=== PATIENT | female | born 1995 | race Two or more races ===

== ENCOUNTER 2024-11-27 04:11 | Emergency (ER) | payer MEDICAID, SELFPAY ==
[2024-11-27 04:12] VITALS: PULSE 86; RESP 18; O2SAT 99
--- NOTE | 2024-11-27 04:12 | PD.EDSYNC ---
ED Syncope RME/HPI General Chief Complaint: Syncope / Near Syncope Stated Complaint: DIZZINESS, Time Seen by Provider: 11/27/24 04:23 Arrival date/time: 11/27/24 04:11 RME / HPI RME / HPI narrative: This section includes all my notes and documentations, including HPI, PE, and ED course. Jaime Woody MD HPI: 28yo female with a history of gestational diabetes [facility] [place] [facility] presents to the ED for a chief complaint of dizziness. Patient states she woke up from her sleep feeling dizzy, as if the room was spinning. Patient states she laid down on the floor due to her symptoms worsening. She was concerned when she developed nausea, so she called 911 to come in for evaluation. Patient states she is currently and is due on 04/23/25, but has not yet had an OB ultrasound no care. She is not on any medications. She denies any abdominal pain, vaginal bleeding, decreased appetite or any other associated symptoms. No other complaints reported. ROS: All negative except as documented in HPI. Physical Exam: General: Alert and oriented. No acute distress when remaining still. Eyes: Conjunctivae and lids clear. PERRL. EOMI. ENT: No nasal congestion. Neck: Supple. Heart: RRR. Lungs: No respiratory distress. Good air movement. No rhonchi, wheezing, rales. Abdomen: Soft and nontender. Legs: No clubbing, cyanosis, edema. Skin: Warm and dry. Neuro: Alert and oriented X 3. Cranial nerves II to XII grossly normal. No peripheral motor deficits. I ordered IV fluid and Zofran and meclizine and diagnostic tests including OB ultrasound. At 6 AM on 11/27/2024, the care of the patient was transferred to Dr Mcfarland. Jaime Woody MD Related Data Previous Rx's ?Medication ?Instructions ?Recorded ibuprofen 800 mg tablet 800 mg PO TID PRN pain #30 tabs 11/01/23 Allergies Allergy/AdvReac Type Severity Reaction Status Date / Time No Known Allergies Allergy Verified 01/06/22 05:53 Review of Systems Review of Systems Systems Reviewed: All systems reviewed, normal except as documented Past Medical History Past Medical History CARDIAC: Negative Congestive Heart Failure RESPIRATORY: Negative Chronic Obstructive Pulmonary Disease (COPD) GENITOURINARY: Negative Renal Disease ENDOCRINE: Positive Endocrine Disorders and Diabetes Mellitus Type 2; Negative Diabetes Mellitus Type 1 Social History SMOKING STATUS: Former smoker ED Exam Narrative Physical exam: As noted in HPI. Course Quality Measures none Orders Category Date Time Status Bedside COVID-19 Antigen Test NOW Care 11/27/24 04:23 Active Bedside Influenza A&B Antigen Test NOW Care 11/27/24 04:23 Completed heart tone auscultation X1 Care 11/27/24 04:23 Active Saline [Insert IV] NOW Care 11/27/24 04:23 Active Straight [In and Out Catheter] X1 Care 11/27/24 04:23 Active US OB <= 14 weeks fetus Stat Exams 11/27/24 04:24 Ordered Meclizine HCl [Antivert] Med 11/27/24 04:25 Discontinued 25 mg PO X1 ONE Ondansetron Inj [Zofran Inj] Med 11/27/24 04:24 Discontinued 4 mg IV X1 ONE Sodium Chloride 0.9% 1000 ml [Ns] 1,000 ml Med 11/27/24 04:24 Discontinued IV 999 mls/hr Vital Signs Vital signs: Vital Signs Temperature 98.3 F 11/27/24 04:15 Pulse Rate 83 11/27/24 04:15 Respiratory Rate 18 11/27/24 04:15 Blood Pressure 129/77 11/27/24 04:15 Pulse Oximetry (%) 100 11/27/24 04:15 Oxygen Delivery Method Room Air 11/27/24 04:15 Syncope MDM Narrative MDM Narrative:: Scribe Attestation: 11/27/24 - Carito Parkinson am scribing for and in the presence of Dr. Woody. Patient data External records reviewed:: [facility] previous records (Per chart review, patient has no relevant previous ED visits.) Clinical information provided by:: patient Social determinants that could affect healthcare access:: housing Patient has the following chronic illnesses:: gestational diabetes How is presenting disease/condition affected by chronic disease/condition?: exacerbated by Evaluation data The following diagnostics were reviewed and interpreted by me:: lab results and EKG tracing(s) Lab and/or radiology exams considered but not ordered:: none Interpretation Summary: Diagnostics pending Medications / Prescriptions Medications or Prescriptions considered but not ordered:: none Medication administrations:: Medication Administration History Discontinued Medications Sodium Chloride (Ns) 1,000 mls @ 999 mls/hr IV .Q1H1M ONE Stop: 11/27/24 05:24 Last Admin: 11/27/24 05:00 Dose: 999 mls/hr Documented By: CRISTINA Meclizine HCl (Meclizine Hcl 25 Mg Tablet) 25 mg PO X1 ONE Stop: 11/27/24 04:26 Last Admin: 11/27/24 04:48 Dose: 25 mg Documented By: CRISTINA Ondansetron HCl (Ondansetron Inj 2 Mg/Ml Inj 2 Ml) 4 mg IV X1 ONE; Protocol Stop: 11/27/24 04:25 Last Admin: 11/27/24 04:48 Dose: 4 mg Documented By: CRISTINA IV fluid and Zofran and meclizine ordered Consultations Consultation(s) initiated? (list below): No Diagnosis Syncope Differential Diagnosis: syncope due to orthostatic hypotension, vasovagal syncope, dehydration and other (Vertigo, electrolyte abnormalities) Most likely diagnosis given after review of the tests above:: Diagnostics pending. Admission Indicated Admission indicated?: not indicated Explain why admission is indicated or not indicated:: Diagnostics pending. Admission Request Was there a request for admission?: No Disposition Plan Disposition Plan: other (specify) (Care transferred to next shift physician.) Discharge Plan Prescriptions/Referrals Prescriptions/Med Rec: No Action ibuprofen 800 mg tablet 800 mg PO TID PRN (Reason: pain) Qty: 30 0RF Referrals: Brown Freitas MD [Primary Care Provider] - In 1 week Problem List Clinical Impression: Dizziness, Patient/Caregiver Discharge Instructions Print Language: Yi
[2024-11-27 04:15] VITALS: BP 129/77; PULSE 83; RESP 18; TEMP 36.8; O2SAT 100
[2024-11-27] MEDS: ONDANSETRON INJ 2 MG/ML INJ 2 ML 4 MG IV (04:48)
[2024-11-27] MEDS: MECLIZINE HCL 25 MG TABLET PO (04:48)
[2024-11-27] MEDS: SODIUM CHLORIDE 0.9% 1000 ML 1,000 ML 999 ML IV (05:00)
[2024-11-27 05:52] VITALS: BP 113/80; PULSE 73; RESP 18; O2SAT 99
--- NOTE | 2024-11-27 05:53 | PD.EDADDENDU ---
Emergency Room Addendum Addendum Narrative: 0600: Care assumed from Dr. Woody, the previous shift emergency physician. Past medical, surgical, social and family history reviewed. Vitals and home medications reviewed. I will assume the care of the patient at this time, pending ultrasound and final disposition. Please refer to the emergency department record for history and examination from initial visit.? Physical exam by me shows patient under no acute distress at this time. 0752: Patient remains clinically stable throughout the emergency department visit. Re-assessment at the time of disposition demonstrates that the patient is in no acute distress. We reviewed all the results, analysis, and treatment plans. Patient is amenable to discharge. Strict return precautions were outlined. Patient was discharged in stable condition. Diagnoses: -Dizziness - RADIOLOGY Procedure(s): US OB >= 14 weeks Fetus Accession Number(s): [id number] cc: Brown Freitas MD; Jaime Woody MD; Amarjit Patricio MD~ Examination: Complete OB ultrasound greater than 14 weeks Date and time of exam: November 27, 2024 at 0559 hours INDICATIONS: Outside pelvic cramping today Findings: Viable intrauterine single fetus with single amniotic sac presentation transverse Cardiac motion 166 BPM Placenta anterior grade 1 and Umbilical cord insertion seen Amniotic fluid index 11.4 cm spine maternal right Cervix 6.1 cm closed Ovaries obscured by the uterus. Composite estimated gestational age based on BPD, head circumference, abdominal circumference, femur length is 19 weeks 3 days Estimated weight 309 g. Survey of intracranial anatomy, spinal anatomy, abdominal anatomy, four-chamber heart performed with no abnormalities identified. Impression: Viable intrauterine gestation transverse presentation Estimated gestational age 19 weeks 3 days. Dictated By: Amarjit Patricio MD
--- NOTE | 2024-11-27 06:25 | XR_ITS ---
Examination: Complete OB ultrasound greater than 14 weeks Date and time of exam: November 27, 2024 at 0559 hours INDICATIONS: Outside pelvic cramping today Findings: Viable intrauterine single fetus with single amniotic sac presentation transverse Cardiac motion 166 BPM Placenta anterior grade 1 and Umbilical cord insertion seen Amniotic fluid index 11.4 cm spine maternal right Cervix 6.1 cm closed Ovaries obscured by the uterus. Composite estimated gestational age based on BPD, head circumference, abdominal circumference, femur length is 19 weeks 3 days Estimated weight 309 g. Survey of intracranial anatomy, spinal anatomy, abdominal anatomy, four-chamber heart performed with no abnormalities identified. Impression: Viable intrauterine gestation transverse presentation Estimated gestational age 19 weeks 3 days.
[2024-11-27 06:27] VITALS: BP 144/99; PULSE 72; RESP 18; TEMP 36.7; O2SAT 98
[2024-11-27 07:50] VITALS: BP 113/80; PULSE 80; PULSE 96; RESP 16; TEMP 36.9; O2SAT 100
== END 2024-11-27 07:58 | disposition home or self-care (01) ==
PROVIDERS: Emergency Provider Emergency Medicine; PCP Family Medicine
DX: O24.912 Unspecified diabetes mellitus in pregnancy, second trimester (principal); R42 Dizziness and giddiness; O09.32 Supervision of pregnancy with insufficient antenatal care, second trimester; Z3A.19 19 weeks gestation of pregnancy
CPT/HCPCS: 76805; 87400; 87811; 96361; 96374; 99284; J2405; J7030; A9270

== ENCOUNTER 2024-11-28 20:48 | Emergency (ER) | payer MEDICAID, SELFPAY ==
--- NOTE | 2024-11-28 21:05 | PD.EDADULT ---
ED General RME/HPI General Stated complaint: MEDICAL CLEARANCE Time Seen by Provider: 11/28/24 20:55 Arrival date/time: 11/28/24 20:48 CC: Medical clearance HPI patient admits that she is , patient does not know how far along does not know her last menstrual cycle thinks that she is due in April 2025. Patient is a G3, P2 denies any vaginal bleeding vaginal discharge lower abdominal cramping lower abdominal pain painful urination bloody urination nausea vomiting or diarrhea. Patient denies any physical pain. Related Data Previous Rx's ?Medication ?Instructions ?Recorded ibuprofen 800 mg tablet 800 mg PO TID PRN pain #30 tabs 11/01/23 Allergies Allergy/AdvReac Type Severity Reaction Status Date / Time No Known Allergies Allergy Verified 01/06/22 05:53 Review of Systems Review of Systems Narrative Review of Systems: GEN: No fever, no chills, no weight loss EYES: No discharge, no visual changes, no pain HEENT: No ear pain, no congestion, no sore throat PULM: No shortness of breath, no cough, no congestion CV: No chest pain, no dyspnea on exertion, no palpitations GI: No nausea, no vomiting, no diarrhea, no pain, no constipation : No frequency, no urgency, no dysuria MUSC/SKEL: No joint pain, no back pain SKIN: No rash PSYCH: No hallucinations, no depression HEME/LYMPH: No easy bleeding or bruising tendencies NEURO: No weakness, no headache Past Medical History Past Medical History CARDIAC: Negative Congestive Heart Failure RESPIRATORY: Negative Chronic Obstructive Pulmonary Disease (COPD) GENITOURINARY: Negative Renal Disease ENDOCRINE: Positive Endocrine Disorders and Diabetes Mellitus Type 2; Negative Diabetes Mellitus Type 1 Social History SMOKING STATUS: Former smoker ED Exam Narrative Physical exam: [General: Obese not in any acute distress Head normocephalic HEENT: Within acceptable limits Neck is supple nontender Chest equal chest rise nontender to palpation Respiratory: Clear to auscultation no wheezes crackles or rubs CV: Rate rhythm is regular no murmurs rubs or clicks Abdomen is distended secondary to body habitus soft nontender no masses positive bowel sounds all 4 quadrants heart tones 149 located between the umbilicus and the underside of the pannus just above the pubis mons. Mid abdomen Back: No CVA tenderness no spinous process tenderness from cervical spine thoracic and lumbar spine Skin: Intact no petechiae rash induration ulceration or crepitus Extremities: Moving all extremity against resistance cap refill less than 2 seconds neurosensory intact Neuro: Awake alert oriented x3 Glascow coma 15 no focal deficits] Course Quality Measures none MDM Patient data External records reviewed:: [facility] previous records Clinical information provided by:: law enforcement Social determinants that could affect healthcare access:: none Patient has the following chronic illnesses:: None How is presenting disease/condition affected by chronic disease/condition?: uneffected by Evaluation data The following diagnostics were reviewed and interpreted by me:: other (specify) (None) Lab and/or radiology exams considered but not ordered:: None Interpretation Summary: heart tones at 149 patient is cleared for incarceration Medications Medications considered but not ordered:: None Medication administrations:: None Consultations Consultation(s) initiated? (list below): No Diagnosis Differential Diagnosis ED Complaint MDM: demise SAB Most likely diagnosis given after review of the tests above:: Cleared for incarceration Admission Indicated Admission indicated?: not indicated Explain why admission is indicated or not indicated:: Cleared for group home Admission Request Was there a request for admission?: No Disposition Plan Disposition Plan: Discharge Discharge Attestation Discharge Attestation: The patient and all family members were given an opportunity to ask questions and understood the discharge instructions. Discharge instructions specifically effects, indications for sooner follow up or return to the emergency department, and the expected course of current diagnosis. Patient condition: Stable Medical Decision Making Differential Diagnosis Differential Diagnosis: demise SAB Discharge Plan Plan Patient Disposition: HOME (Self Care) Patient condition on transfer: Stable Prescriptions/Referrals Prescriptions/Med Rec: No Action ibuprofen 800 mg tablet 800 mg PO TID PRN (Reason: pain) Qty: 30 0RF Problem List Clinical Impression: , Medical clearance for incarceration Patient/Caregiver Discharge Instructions Print Language: French Stand Alone Forms: Emilia Irwin Info., Patient Portal Info Letter PA/ZABRINA Supervising Physician LOIS Supervising Physician: Mynor Monreal ENP
[2024-11-28 21:13] VITALS: BMI 32.5
[2024-11-28 21:14] VITALS: BP 144/90; PULSE 135; RESP 19; TEMP 36.8; O2SAT 97
== END 2024-11-28 21:20 | disposition home or self-care (01) ==
LOC: SERX 21:22
PROVIDERS: Emergency Provider Emergency Medicine
DX: Z02.89 Encounter for other administrative examinations (principal); Z34.90 Encounter for supervision of normal pregnancy, unspecified, unspecified trimester
CPT/HCPCS: 99281

== ENCOUNTER 2025-03-24 22:02 | Emergency (ER) | payer MEDICAID, SELFPAY ==
[2025-03-24 22:06] VITALS: BP 132/80; PULSE 66; RESP 20; TEMP 36.7; O2SAT 100
[2025-03-24 22:07] VITALS: PULSE 75; RESP 18; O2SAT 98
[2025-03-24 22:10] VITALS: BMI 32.9
--- NOTE | 2025-03-24 22:13 | EDNOTE_ITS ---
ED SOB =RME/HPI General Chief Complaint: Shortness of Breath/Dyspnea Stated Complaint: SOB Time Seen by Provider: 03/24/25 22:20 Arrival date/time: 03/24/25 22:02 RME / HPI RME / HPI Narrative: This section includes all my notes and documentations, including HPI, PE, and ED course. Jaime Woody MD HPI: 29yo female who is ~36 weeks gestation BIBA from home with shortness of breath and heartburn for the last couple of days. Patient's symptoms worsened today. No contractions, vaginal bleeding, nausea, vomiting, or diarrhea. Baby has been moving well. No other complaints reported. ROS: All negative except as documented in HPI. Physical Exam: General: Alert and oriented. No acute distress when remaining still. Eyes: Conjunctivae and lids clear. ENT: No nasal congestion. Neck: Supple. Heart: RRR. Lungs: No respiratory distress. Good air movement. No rhonchi, wheezing, rales. Abdomen: Soft, gravid consistent with dates, and mild epigastric tenderness. Normal bowel sounds. No distension. No rebound or guarding. Back: No CVA tenderness. Skin: Warm and dry. Neuro: Alert and oriented X 3. I reviewed EMS notes. I reviewed all diagnostic test results. My interpretation of the EKG is sinus rhythm with no ST-T changes. My review of the abdominal US report is cholelithiasis. Blood tests unremarkable except Mg 1.4. UA unremarkable. COVID/Influenza negative. Negative NST by OB. At this point, diagnoses include GERD and Cholelithiasis. Treatment here included Pantoprazole, Morphine, Zofran, NS, Famotidine, and Magnesium. Significant improvement noted. I discussed the case with our [employer], Dr. Babin. About the presentation and exam and diagnostics and treatments here. And possible need of further care in the hospital. Recommended outpatient follow-up. Based on my best medical judgment, made decision no further evaluation or treatment indicated at this time. Patient understands and agrees to the discharge instructions customized and printed, see below. Discharge Instructions from Dr. Woody printed for you: 1. After evaluation here in the ER, your diagnoses include GERD (heartburn) and gallstone. 2. For GERD, take famotidine as needed, as prescribed. 3. You need gallbladder to help digest fatty foods. So to prevent future attacks, avoid all fatty and oily and greasy and buttery and dairy foods. This usually means take out and fast food restaurants. Zofran for nausea/vomiting. Tylenol with codeine for severe pain. Clear liquid diet for 24 hours then advance diet slowly as tolerated. 4. See a private doctor on 02/11/2025 for recheck and further care. Ask to review all test results and official radiology reports, to make sure you receive all necessary follow-ups and monitoring. Ask for help seeing a general surgeon to discuss elective surgery. 5. Seek immediate medical care with intolerable pain, fever, or with any concerns. Jaime Woody MD Related Data Previous Rx's ?Medication ?Instructions ?Recorded ibuprofen 800 mg tablet 800 mg PO TID PRN pain #30 t abs 11/01/23 famotidine 40 mg tablet 40 mg PO BID PRN Abdominal 0 03/25/25 Distention #30 tabs ondansetron 4 mg disintegrating 4 mg PO TID PRN nausea and 03/25/25 tablet vomiting 30 days #10 tabs oxycodone-acetaminophen 5 mg-325 2 tab PO Q8H PRN pain #20 tabs 03/25/25 mg tablet (Percocet) Allergies Allergy/AdvReac Type Severity Reaction Status Date / Time No Known Allergies Allergy Verified 01/06/22 05:53 Review of Systems Review of Systems Systems Reviewed: All systems reviewed, normal except as documented Past Medical History Past Medical History CARDIAC: Negative Congestive Heart Failure RESPIRATORY: Negative Chronic Obstructive Pulmonary Disease (COPD) GENITOURINARY: Negative Renal Disease ENDOCRINE: Positive Endocrine Disorders and Diabetes Mellitus Type 2; Negative Diabetes Mellitus Type 1 Social History SMOKING STATUS: Never smoker ED Exam Narrative Physical exam: As noted in HPI. Course Quality Measures none Orders Category Date Time Status Bedside COVID-19 Antigen Test NOW Care 03/24/25 22:32 Completed Bedside Influenza A&B Antigen Test NOW Care 03/24/25 22:32 Completed EKG (ED ONLY) *Do not use* NOW Care 03/24/25 22:31 Completed heart tone auscultation X1 Care 03/24/25 22:32 Completed Saline [Insert IV] NOW Care 03/24/25 22:32 Completed EKG (ED Only) Stat Exams 03/24/25 22:31 Draft US abdomen limited Stat Exams 03/24/25 22:35 Taken Amylase Stat Lab 03/24/25 22:52 Completed BNP [B-Type Natriuretic Peptide] Stat Lab 03/24/25 22:52 Completed Bilirubin,Direct Stat Lab 03/24/25 22:52 Completed CBC Routine Lab 03/24/25 23:59 Ordered CBC Stat Lab 03/24/25 22:52 Completed CMP [Comprehensive Metabolic Panel] Stat Lab 03/24/25 22:52 Completed Creatinine,Random Urine Stat Lab 03/24/25 23:59 Ordered D-Dimer Stat Lab 03/24/25 22:52 Completed Fibrinogen Routine Lab 03/24/25 23:59 Ordered Free T4 (Free Thyroxine) Stat Lab 03/24/25 22:52 Completed Lipase Stat Lab 03/24/25 22:52 Completed Magnesium Stat Lab 03/24/25 22:52 Completed Partial Thromboplastin Time Routine Lab 03/24/25 23:59 Ordered Protein Total, Random Urine Stat Lab 03/24/25 23:59 Ordered Prothrombin Time with INR Routine Lab 03/24/25 23:59 Ordered RSV [Respiratory Syncytial Virus Ag] Stat Lab 03/25/25 00:18 Completed TSH [Thyroid Stimulating Hormone] Stat Lab 03/24/25 22:52 Completed Troponin I Stat Lab 03/24/25 22:52 Completed UA, C/S IF [Urinalysis, C/S if Indicated] Stat Lab 03/24/25 23:59 Ordered Uric Acid Routine Lab 03/24/25 23:59 Ordered Uric Acid Stat Lab 03/24/25 22:52 Completed Urinalysis Routine Lab 03/24/25 23:59 Ordered Famotidine Inj [Pepcid Inj] Med 03/24/25 22:34 Discontinued 20 mg IVP X1 ONE Magnesium Sulfate 2 GM Ivpb [Magnesium Sulfate Ivpb] Med 03/24/25 23:47 Discontinued 2 gm in 50 ml IV X1 Morphine Inj Med 03/24/25 22:34 Discontinued 2 mg IVP X1 ONE Ondansetron Inj [Zofran Inj] Med 03/24/25 22:34 Discontinued 4 mg IVP X1 ONE Pantoprazole Inj [Protonix Inj] Med 03/24/25 22:34 Discontinued 40 mg IVP X1 ONE Sodium Chloride 0.9% 1000 ml [Ns] 1,000 ml Med 03/24/25 22:34 Discontinued IV 999 mls/hr Vital Signs Vital signs: Vital Signs Temperature 98.0 F 03/24/25 22:06 Pulse Rate 66 03/24/25 22:06 Respiratory Rate 20 03/24/25 22:06 Blood Pressure 132/80 H 03/24/25 22:06 Pulse Oximetry (%) 100 03/24/25 22:06 Oxygen Delivery Method Room Air 03/24/25 22:06 Shortness of Breath / Dyspnea MDM Narrative MDM Narrative:: 29yo female who is ~36 weeks gestation BIBA from home with shortness of breath and heartburn for the last couple of days. Patient's symptoms worsened today. No contractions, vaginal bleeding, nausea, vomiting, or diarrhea. Baby has been moving well. No other complaints reported. Patient data External records reviewed:: [facility] previous records (Per chart review, patient has no relevant previous ED visits.) and EMS form Clinical information provided by:: patient Social determinants that could affect healthcare access:: none Patient has the following chronic illnesses:: DM How is presenting disease/condition affected by chronic disease/condition?: uneffected by Evaluation data The following diagnostics were reviewed and interpreted by me:: lab results, radiology exam(s) and EKG tracing(s) (My interpretation of the EKG: NSR (71 bpm) with no ST-T changes. Jaime Woody MD) Lab and/or radiology exams considered but not ordered:: none Interpretation Summary: I reviewed all diagnostic test results. My interpretation of the EKG is sinus rhythm with no ST-T changes. My review of the abdominal US report is cholelithiasis. Blood tests unremarkable except Mg 1.4. UA unremarkable. COVID/Influenza negative. Negative NST by OB. Medications / Prescriptions Medications or Prescriptions considered but not ordered:: none Medication administrations:: Medication Administration History Discontinued Medications Famotidine (Famotidine Inj 10 Mg/Ml Vial 2 Ml) 20 mg IVP X1 ONE Stop: 03/24/25 22:35 Last Admin: 03/24/25 22:49 Dose: 20 mg Documented By: DT Sodium Chloride (Ns) 1,000 mls @ 999 mls/hr IV .Q1H1M ONE Stop: 03/24/25 23:34 Last Infusion: 03/24/25 23:47 Dose: Infused Documented By: Admin: 03/24/25 22:46 Dose: 999 mls/hr Documented By: DT Magnesium Sulfate (Magnesium Sulfate Ivpb) 2 gm in 50 mls @ 25 mls/hr IV X1 ONE Stop: 03/25/25 01:46 Last Admin: 03/25/25 00:22 Dose: 25 mls/hr Documented By: DT Morphine Sulfate (Morphine Sulf Inj 10 Mg/Ml Vial) 2 mg IVP X1 ONE Stop: 03/24/25 22:35 Last Admin: 03/24/25 22:50 Dose: 2 mg Documented By: DT Ondansetron HCl (Ondansetron Inj 2 Mg/Ml Inj 2 Ml) 4 mg IVP X1 ONE; Protocol Stop: 03/24/25 22:35 Last Admin: 03/24/25 22:48 Dose: 4 mg Documented By: DT Pantoprazole Sodium (Pantoprazole Inj 40 Mg Vial) 40 mg IVP X1 ONE Stop: 03/24/25 22:35 Last Admin: 03/24/25 22:49 Dose: 40 mg Documented By: DT Pantoprazole, Morphine, Zofran, NS, Famotidine, Magnesium Consultations Consultation(s) initiated? (list below): Yes Consultation #1 (Physician, Specialty, Details): I discussed the case with our [employer], Dr. Babin. About the presentation and exam and diagnostics and treatments here. And possible need of further care in the hospital. Recommended outpatient follow-up. Diagnosis Shortness of Breath Differential Diagnosis: acute exacerbation of chronic obstructive airways disease, congestive heart failure, community acquired pneumonia, asthma with exacerbation, pulmonary embolism and other ( labor, preeclampsia, PUD, GERD, gastritis, biliary colic) Most likely diagnosis given after review of the tests above:: GERD, Cholelithiasis Admission Indicated Admission indicated?: not indicated Explain why admission is indicated or not indicated:: With significant improvement and no condition needing emergent intervention, there was no indication for admission. Admission Request Was there a request for admission?: No Disposition Plan Disposition Plan: Discharge Discharge Attestation Discharge Attestation: The patient and all family members were given an opportunity to ask questions and understood the discharge instructions. Discharge instructions specifically effects, indications for sooner follow up or return to the emergency department, and the expected course of current diagnosis. Patient condition: Stable Discharge Plan Plan Patient Disposition: HOME (Self Care) Prescriptions/Referrals Prescriptions/Med Rec: New famotidine 40 mg tablet 40 mg PO BID PRN (Reason: Abdominal Distention) Qty: 30 0RF ondansetron 4 mg tablet,disintegrating 4 mg PO TID PRN (Reason: nausea and vomiting) 30 Days Qty: 10 0RF oxycodone-acetaminophen [Percocet] 5-325 mg tablet 2 tab PO Q8H MDD 6 PRN (Reason: pain) Qty: 20 0RF No Action ibuprofen 800 mg tablet 800 mg PO TID PRN (Reason: pain) Qty: 30 0RF Referrals: No Primary/Family,Physician [Primary Care Provider] - In 1 week Problem List Clinical Impression: GERD (gastroesophageal reflux disease), Cholelithiasis Patient/Caregiver Discharge Instructions Discharge Activity: activity as tolerated Education Materials: ED GERD (Adult), ED Gallstones with Biliary Colic Additional Instructions: Discharge Instructions from Dr. Woody printed for you: 1. After evaluation here in the ER, your diagnoses include GERD (heartburn) and gallstone. 2. For GERD, take famotidine as needed, as prescribed. 3. You need gallbladder to help digest fatty foods. So to prevent future attacks, avoid all fatty and oily and greasy and buttery and dairy foods.? This usually means take out and fast food restaurants. Zofran for nausea/vomiting.? Percocets for only severe pain.? Clear liquid diet for 24 hours then advance diet slowly as tolerated. 4. See your primary care doctor and your distribution operations supervisor this week for recheck and further care. Ask to review all test results and official radiology reports, to make sure you receive all necessary follow-ups and monitoring. Ask for help seeing a general surgeon to discuss elective surgery. 5. Seek immediate medical care with intolerable pain, fever, decreased movement of your baby, vaginal bleeding, regular contractions, or with any concerns. Print Language: Ecuadorean
--- NOTE | 2025-03-24 22:31 | EKG_ITS ---
[facility] Test Date: 2025-03-24 Pat Name: SRI BENJAMIN Department: Room: - Gender: Female Artist'S Representative: : 1995 Requested By: Jaime Martines Order Number: [id number] Reading MD: Jaime Martines Measurements Intervals Siren Rate: 71 P: 44 MD: 166 QRS: 63 QRSD: 78 T: 19 QT: 368 QTc: 402 Interpretive Statements SINUS RHYTHM No previous ECG available for comparison /store/S0/[id number].pdf
--- NOTE | 2025-03-24 22:35 | XR_ITS ---
Examination: Abdomen sonogram, Limited Date and time of exam: March 24, 2025, 11:37 PM INDICATIONS: Epigastric pain and tenderness today Technique: Real-time carter scale transabdominal sonographic images of the upper abdomen obtained. Findings: 19 mm gallstone Gallbladder wall 0.3 cm no edema Common bile duct 0.2 cm Pancreas obscured by bowel gas Liver 16.2 cm no liver lesions Normal hepatopedal portal venous flow Patent IVC IMPRESSION: Cholelithiasis, negative for cholecystitis
[2025-03-24] MEDS: SODIUM CHLORIDE 0.9% 1000 ML 1,000 ML 999 ML IV (22:46)
[2025-03-24] MEDS: ONDANSETRON INJ 2 MG/ML INJ 2 ML 4 MG IVP (22:48)
[2025-03-24] MEDS: FAMOTIDINE INJ 10 MG/ML VIAL 2 ML 20 MG IVP (22:49)
[2025-03-24] MEDS: MORPHINE SULF INJ 10 MG/ML VIAL 2 MG IVP (22:50)
[2025-03-24 23:02] LABS: Collection Type, Urine Clean Catch; WBC,Urine 0 /hpf (0-5)
[2025-03-24 23:05] LABS: Basophils # (Auto) 0.0 Thou/mm3 (0.0-0.2); Basophils % (Auto) 0 % (0-2.5); Eosinophils # (Auto) 0.0 Thou/mm3 (0.0-0.5); Eosinophils % (Auto) 1 % (0-10); Hematocrit 32.9 % (36.0-46.0); Hemoglobin 11.3 g/dL (12.0-16.0); Immature Granulocytes Auto 0.03 Thou/mm3 (0.00-0.00); Lymphocytes # (Auto) 2.3 Thou/mm3 (1.0-4.8); Lymphocytes % (Auto) 31 % (10-50); Mean Corpuscular HGB Conc 34.3 g/dl (31.0-37.0); Mean Corpuscular Hemoglobin 27.8 pg (25.0-35.0); Mean Corpuscular Volume 81 fL (80-100); Monocytes # (Auto) 0.4 Thou/mm3 (0.0-0.8); Monocytes % (Auto) 6 % (0-12); Neutrophils # (Auto) 4.6 Thou/mm3 (1.8-7.7); Neutrophils % (Auto) 62 % (37-80); Nucleated Red Blood Cell # 0.00 Thou/mm3 (0.00-0.00); Nucleated Red Blood Cell % 0 /100 WBC (0); Platelet Count 186 Thou/mm3 (140-440); RDW Standard Deviation 38.8 fL (36.4-46.3); Red Blood Count 4.07 Miln/mm3 (4.00-5.20); White Blood Count 7.5 Thou/mm3 (3.6-11.0)
[2025-03-24 23:10] LABS: Amorphous Crystals,Urine Present (Absent); Bacteria,Urine Rare; Bilirubin,Urine Negative (Negative); Blood,Urine Negative (Negative); Clarity,Urine Clear (Clear/Hazy); Color,Urine Colorless (Lt Yel-Yel); Culture Indicated,Urine Not Indicated; Glucose, Urine 3+ (Negative); Ketones,Urine Negative (Negative); Leukocyte Esterase,Urine Negative (Negative); Nitrite,Urine Negative (Negative); PH,Urine 7.0 (5.0-7.0); Protein,Urine Negative (Neg - Trace); RBC,Urine 1 /hpf (0-3); Specific Gravity,Urine 1.006 (1.001-1.035); Squamous Epithelial Cell,Urine 1 /hpf (0-5); Urobilinogen,Urine Negative mg/dL (0.0-1.0)
[2025-03-24 23:15] LABS: Creatinine,Random Urine 19 mg/dL (30-125); Protein Total, Random Urine < 6 mg/dL (1-14)
[2025-03-24 23:21] LABS: B-Type Natriuretic Peptide < 20 pg/mL (0-100); Fibrinogen 440 mg/dL (175-375); INR 1.0 (0.9-1.3); Partial Thromboplastin Time 25.3 Seconds (22.0-36.0); Prothrombin Time 10.6 Seconds (9.0-12.2)
[2025-03-24 23:25] LABS: D-Dimer 1030 ng/mL (<600)
[2025-03-24 23:34] LABS: Alanine Aminotransferase < 7 U/L (10-49); Albumin, Serum 3.1 gm/dL (3.5-5.0); Albumin/Globulin Ratio 1.6 (1.2-2.2); Alkaline Phosphatase 92 U/L (46-116); Amylase 44 U/L (30-118); Anion Gap 10 (7-16); Aspartate Amino Transferase 12 U/L (0-34); BUN/Creatinine Ratio 10 Ratio (12-20); Bilirubin,Direct < 0.1 mg/dL (0.0-0.3); Bilirubin,Total 0.3 mg/dL (0.3-1.2); Blood Urea Nitrogen < 5 mg/dL (9-23); Calcium 8.0 mg/dL (8.3-10.6); Calcium (Corrected) 8.7 mg/dL (8.5-10.1); Carbon Dioxide 19.7 mMol/L (20.0-31.0); Chloride 108 mMol/L (98-107); Creatinine (Component) 0.5 mg/dL (0.6-1.3); Estimated Creatinine Clearance 174.1 mL/min (>60); Free T4 (Free Thyroxine) 1.09 ng/dL (0.89-1.76); Globulin 2.0 gm/dL (2.3-3.5); Glucose 163 mg/dL (74-106); Lipase 27 U/L (12-53); Magnesium 1.4 mg/dL (1.6-2.6); Osmolality,Calculated 276 (275-295); Potassium 3.6 mMol/L (3.4-5.1); Sodium 138 mMol/L (136-145); Thyroid Stimulating Hormone 0.99 uIU/mL (0.55-4.78); Total Protein 5.1 gm/dL (5.7-8.2); Troponin I < 0.002 ng/mL (0.0-0.045); Uric Acid 3.8 mg/dL (3.1-7.8); eGFR > 60 See Note
[2025-03-25] MEDS: Magnesium Sulfate 2 GM Ivpb 2 GM/50 ML BAG IV (00:22)
[2025-03-25 00:43] LABS: Respiratory Syncytial Virus Ag Negative (Negative)
[2025-03-25 02:18] VITALS: BP 126/67; PULSE 85; RESP 14; TEMP 37; O2SAT 99
== END 2025-03-25 02:22 | disposition home or self-care (01) ==
PROVIDERS: Emergency Provider Emergency Medicine
DX: K21.9 Gastro-esophageal reflux disease without esophagitis (principal); K80.20 Calculus of gallbladder without cholecystitis without obstruction
CPT/HCPCS: 36415; 76705; 80053; 81001; 82150; 82248; 82570; 83690; 83735; 83880; 84156; 84439; 84443; 84484; 84550; 85025; 85379; 85384; 85610; 85730; 87400; 87634; 87811; 93005; 96361; 96365; 96366; 96375; 99284; J2270; J2405; J2470; J3475; J3490; J7030

== ENCOUNTER 2025-04-10 10:31 | Inpatient (IN) | payer MEDICAID, SELFPAY ==
[2025-04-10] VITALS (98 sets, daily range): BP systolic 114–183; BP diastolic 60–105; PULSE 54–90; RESP 15–99; TEMP 36.3–36.8; O2SAT 89–100; BMI 33.1
--- NOTE | 2025-04-10 10:35 | XR_ITS ---
Examination: Complete OB ultrasound greater than 14 weeks Date and time of exam: April 10, 2025 1059 hours INDICATIONS: No care Findings: Viable intrauterine single fetus with single amniotic sac presentation cephalic spine maternal left Cardiac motion 162 BPM Placenta anterior grade 2 Umbilical cord and 3 vessel seen Amniotic fluid index 26 cm Ovaries obscured by bowel gas. Composite estimated gestational age based on BPD, head circumference, abdominal circumference, femur length is 38 weeks 5 days Estimated weight 4244 g. Survey of intracranial anatomy, spinal anatomy, abdominal anatomy, four-chamber heart performed with no abnormalities identified. Impression: Viable intrauterine gestation cephalic presentation Amniotic fluid index 26 cm Estimated gestational age 38 weeks 5 days Estimated weight 4244 g.
[2025-04-10 10:55] LABS: Collection Type, Urine Clean Catch
[2025-04-10 11:12] LABS: Basophils # (Auto) 0.0 Thou/mm3 (0.0-0.2); Basophils % (Auto) 0 % (0-2.5); Eosinophils # (Auto) 0.0 Thou/mm3 (0.0-0.5); Eosinophils % (Auto) 1 % (0-10); Hematocrit 34.2 % (36.0-46.0); Hemoglobin 11.6 g/dL (12.0-16.0); Immature Granulocytes Auto 0.02 Thou/mm3 (0.00-0.00); Lymphocytes # (Auto) 2.0 Thou/mm3 (1.0-4.8); Lymphocytes % (Auto) 32 % (10-50); Mean Corpuscular HGB Conc 33.9 g/dl (31.0-37.0); Mean Corpuscular Hemoglobin 26.8 pg (25.0-35.0); Mean Corpuscular Volume 79 fL (80-100); Monocytes # (Auto) 0.4 Thou/mm3 (0.0-0.8); Monocytes % (Auto) 7 % (0-12); Neutrophils # (Auto) 3.8 Thou/mm3 (1.8-7.7); Neutrophils % (Auto) 61 % (37-80); Nucleated Red Blood Cell # 0.00 Thou/mm3 (0.00-0.00); Nucleated Red Blood Cell % 0 /100 WBC (0); Platelet Count 192 Thou/mm3 (140-440); RDW Standard Deviation 39.3 fL (36.4-46.3); Red Blood Count 4.33 Miln/mm3 (4.00-5.20); White Blood Count 6.2 Thou/mm3 (3.6-11.0)
[2025-04-10 11:15] LABS: Creatinine,Random Urine 201 mg/dL (30-125); Protein Total, Random Urine 52 mg/dL (1-14)
[2025-04-10 11:22] LABS: Bacteria,Urine Rare; Bilirubin,Urine Negative (Negative); Blood,Urine Negative (Negative); Color,Urine Yellow (Lt Yel-Yel); Glucose, Urine 4+ (Negative); Hyaline Casts,Urine < 1 /hpf (0-1); Ketones,Urine Trace (Negative); Leukocyte Esterase,Urine Positive (Negative); Nitrite,Urine Negative (Negative); PH,Urine 6.5 (5.0-7.0); Protein,Urine 1+ (Neg - Trace); RBC,Urine 2 /hpf (0-3); Specific Gravity,Urine 1.028 (1.001-1.035); Squamous Epithelial Cell,Urine 15 /hpf (0-5); Urobilinogen,Urine 2.0 mg/dL (0.0-1.0); WBC,Urine 2 /hpf (0-5)
[2025-04-10 11:34] LABS: Fibrinogen 494 mg/dL (175-375); INR 0.9 (0.9-1.3); Partial Thromboplastin Time 23.7 Seconds (22.0-36.0); Prothrombin Time 10.4 Seconds (9.0-12.2)
[2025-04-10 11:42] LABS: Clarity,Urine Hazy (Clear/Hazy)
[2025-04-10 11:50] LABS: Alanine Aminotransferase < 7 U/L (10-49); Albumin, Serum 3.0 gm/dL (3.5-5.0); Albumin/Globulin Ratio 1.8 (1.2-2.2); Alkaline Phosphatase 131 U/L (46-116); Anion Gap 10 (7-16); Aspartate Amino Transferase 14 U/L (0-34); BUN/Creatinine Ratio 18 Ratio (12-20); Bilirubin,Total 0.3 mg/dL (0.3-1.2); Blood Urea Nitrogen 11 mg/dL (9-23); Calcium 8.6 mg/dL (8.3-10.6); Calcium (Corrected) 9.4 mg/dL (8.5-10.1); Carbon Dioxide 20.2 mMol/L (20.0-31.0); Chloride 106 mMol/L (98-107); Creatinine (Component) 0.6 mg/dL (0.6-1.3); Estimated Creatinine Clearance 145.5 mL/min (>60); Globulin 1.7 gm/dL (2.3-3.5); Glucose 121 mg/dL (74-106); LDH (Lactate Dehydrogenase) 161 U/L (120-246); Osmolality,Calculated 272 (275-295); Potassium 4.2 mMol/L (3.4-5.1); Sodium 136 mMol/L (136-145); Total Protein 4.7 gm/dL (5.7-8.2); Uric Acid 4.8 mg/dL (3.1-7.8); eGFR > 60 See Note
[2025-04-10 13:33] LABS: Glucose Estimated Average 171 mg/dL (80-131); Hemoglobin A1C 7.6 % Hgb (4.8-6.0)
[2025-04-10 14:01] LABS: Syphilis Nonreactive (Nonreactive)
[2025-04-10] MEDS: RINGERS LACTATED 1000 ML 1,000 ML 100 ML IV ×2 (14:30→15:22)
[2025-04-10] MEDS: FAMOTIDINE INJ 10 MG/ML VIAL 2 ML 20 MG IV (16:40)
[2025-04-10] MEDS: METOCLOPRAMIDE INJ 5 MG/ML VIAL 2 ML 10 MG IVP (16:41)
[2025-04-10] MEDS: ceFAZolin/D5W 2 GM IV 2 GM/100 ML BAG IV (16:42)
--- NOTE | 2025-04-10 18:47 | ESHP_ITS ---
Documentation for date of: 04/10/25 OB Labor/Induct. HPI History of Present Illness Chief complaint: By Dr. Spencer for evaluation in triage for ultrasound and labs : 6 Para: 3 Term pregnancies: 2 pregnancies: 1 Living children: 3 History of Abortions: Spontaneous and Elective: 2 History of Vaginal deliveries: 2 History of sections: Yes (1) History of : No SLICK: 04/20/25 Gestational Age (weeks): 38 Gestational Age (days): 4 History of present illness: Patient is a 29-year-old at 38-4/7 weeks estimated gestational age with various body care. Dr. Spencer had not seen her in the office in approximately 4 months for visits. She presented today to the office and I sent her over for an ultrasound and lab work. An ultrasound revealed a baby that was over 9 pounds at 4200 g and an DANNY of 26. Patient had a history of a x 1 in the past. Patient was pam on the monitor. As she had a large for gestational age , polyhydramnios, limited care, a prior and regular contractions she was consented for a repeat low-transverse section. History of Present Dating criteria: LMP confirmed by 2nd trimester US Adequate Care: No (limited PNC) Ultrasounds: normal mid trimester US Obstetrical complications: gestational diabetes Medical complications: none Labs Maternal Blood Type: A Pos Labs: Positive: Rubella Titre and Group Beta Strep, Negative: RPR, Hepatitis B, HIV, Chlamydia and Gonorrhea and Unknown: Herpes Type 1, Herpes Type 2 and Covid-19 Past Medical History Surgical History SURGICAL: Positive Section (1) Meds Home Medications and Allergies Home Medications ?Medication ?Instructions ?Recorded ?Confirmed ?Type metformin 500 mg tablet 500 mg PO BID 04/10/2504/10 History vits no.130-ferrous fum 1 tab PO QDAY 5 04/10/25 History 27 mg iron-folic acid 800 mcg tablet ( Vitamin) Allergies Allergy/AdvReac Type Severity Reaction Status Date / Time No Known Allergies Allergy Verified 04/10/25 11:18 OB Exam Physical Exam Vital signs: Temp Pulse Resp BP Pulse Ox O2 Del Method 98.0 F 76 19 118/65 97 Room Air 04/10/25 16:00 04/10/25 16:49 04/10/25 16:00 04/10/25 16:49 04/10/25 16:55 04/10/25 16:00 Constitutional Constitutional: no acute distress and cooperative Routine Respiratory Exam Respiratory: Present CTA bilaterally Routine Abdominal Exam Abdominal: Present soft and surgical scars (Pfannenstiel skin incision) Comments: Large abdominal girth. Suspected 10 pound baby. Detailed Labor and Delivery Exam monitor accelerations: 15x15 monitor decelerations: None terminal system operator variability: Moderate (11-25) Contraction frequency (min): Up to every 5 minutes apart Tachysystole: No Contraction intensity: Mild OB Results Labs 04/10/25 11:00 04/10/25 11:00 Labs: Short CBC 04/10/25 Range/Units 11:00 WBC 6.2 (3.6-11.0) Thou/mm3 Hgb 11.6 L (12.0-16.0) g/dL Hct 34.2 L (36.0-46.0) % Plt Count 192 (140-440) Thou/mm3 BMP 04/10/25 11:00 Sodium 136 Potassium 4.2 Chloride 106 Carbon Dioxide 20.2 BUN 11 Creatinine 0.6 Glucose 121 H Calcium 8.6 Liver Function 04/10/25 Range/Units 11:00 Total Bilirubin 0.3 (0.3-1.2) mg/dL AST 14 (0-34) U/L ALT < 7 L (10-49) U/L Alkaline Phosphatase 131 H (46-116) U/L Albumin 3.0 L (3.5-5.0) gm/dL Urine 04/10/25 Range/Units 10:25 Urine Color Yellow (Lt Yel-Yel) Urine Clarity Hazy (Clear/Hazy) Urine pH 6.5 (5.0-7.0) Ur Specific [place] 1.028 (1.001-1.035) Urine Protein 1+ A (Neg - Trace) Urine Glucose (UA) 4+ A (Negative) OB Assessment & Plan Assessment and Plan (1) Previous section complicating : Status: Acute (2) Gestational diabetes mellitus (GDM): Status: Acute (3) Polyhydramnios affecting : Status: Acute (4) Large for gestational age fetus affecting management of mother, antepartum: Status: Acute (5) Supervision of high risk in third trimester: Status: Acute Additional Plan Additional Plan Comment: Patient is pam with a large for gestational age , polyhydramnios, poor care last 4 months, and one prior . By dates consistent with a 19-week ultrasound, she is 38-4/7 weeks. She is consented for a repeat low-transverse section. The risks of the procedure were discussed with the patient including the risk of bleeding, infection, blood transfusion, damage to bowel, bladder, blood vessels, other organs. Prolonged hospital stay, and further surgery should any the above occur. All questions were answered, and all consents were signed. (2) Gestational diabetes mellitus (GDM) Qualifiers: Gestational diabetes mellitus control: oral hypoglycemic-controlled T rimester: third trimester Qualified Code(s): O24.415 - Gestational diabetes mellitus in , controlled by oral hypoglycemic drugs (4) Large for gestational age fetus affecting management of mother, antepartum Qualifiers: Fetus number: single or unspecified fetus Qualified Code(s): O36.60X0 - Maternal care for excessive growth, unspecified trimester, not applicable or unspecified
--- NOTE | 2025-04-10 19:11 | PD.GYNPROC ---
Operative Note - [employer]LE DRILLER Procedure Date of procedure: 04/10/25 Procedure Performed: Repeat low-transverse section Indication: The patient is a 29-year-old -1-2-3 at 38-4/[address] Spencer's office for evaluation to OB triage as she has not been seen in the office for approximately 4 months. In triage the baby was measuring over 4200 g with an DANNY of 26. Patient had a history of a x 1. She was found to be pam on the monitor fairly regularly although she was not uncomfortable. As patient was over 38 weeks with poorly controlled gestational diabetes, macrosomia, and polyhydramnios, the decision was made to proceed with repeat low-transverse section. Pre-Op diagnosis: 1. IUP 38 4/7 weeks 2. macrosomia 3. Poorly controlled pregestational diabetes 4. Polyhydramnios 5. Previous with regular contractions Post-Op diagnosis: Same Anesthesia type: Spinal Procedure description: After obtaining informed consent, the patient was brought back to the operating room and spinal anesthesia administered. She was then prepped and draped in the dorsal supine position with a leftward tilt in a normal sterile fashion. A Mccabe catheter was inserted to the patient's bladder. A Pfannenstiel skin incision was made around her prior scar and the prior scar removed. The incision was carried down to the underlying fascia. The fascia was incised in the midline and the fascial incision extended laterally using Calvo scissors. The superior aspect of the fascia was grasped with Filiberto clamps, and the underlying rectus muscles dissected off using blunt and sharp dissection. This was repeated in the inferoir aspect the incision. The rectus muscles were in the midline, and the peritoneum was entered bluntly with the surgeon's fingers. This was extended superiorly and inferiorly with good visualization of the bladder. The bladder blade was inserted and the uterus was noted to be bulging in the lower uterine segment. A low transverse incision was made above the bladder reflection higher in the lower uterine segment with a scalpel. This was extended laterally using blunt dissection with the surgeon's fingers. The bag grier was ruptured and copious clear fluid noted. The bladder blade was removed, and the infant was delivered in a vertex presentation in an atraumatic fashion. The cord was clamped and cut, and the infant was handed off to the waiting pediatric staff. Cord blood was collected as were Cord gases. The placenta was then manually removed and handed off the operating field. The uterus was exteriorized and cleared of all clots and debris. The uterine incision was repaired using 0 Monocryl in a running locked fashion. Excellent hemostasis was noted. The uterus was returned to the patient's abdominal cavity, and copious irrigation carried out with warm normal saline. The uterine incision was examined several times and noted to be hemostatic. After ensuring the rectus muscles were hemostatic, these were reapproximated in the midline using a running suture of 0 Monocryl. The fascia was closed with 0 Vicryl in a running fashion. The subcutaneous tissues were irrigated and found to be hemostatic. The skin was closed with a subcuticular suture of 4-0 Monocryl. The patient tolerated the procedure well, sponge, lap, needle, and instrument counts were correct x 2. The patient went to the recovery area awake and in stable condition. Of note, the baby went to the NICU for observation secondary to decreasing O2 saturations. Blood gases are still pending at the time of dictation. Fluids: crystalloid Fluid amount (mL): 3,000 Urine output (mL): 75 Specimen: none Implants: None Estimated blood loss (ml): 600 Findings: Liveborn female in the OA presentation with no nuchal cord and meconium Apgars were 7 and 8 weight was 4610 g or 10 pounds 1 ounce. Blood gases were sent and are pending at the time of dictation. Implants in endometriosis in lower uterine segment, otherwise, normal uterus, tubes, ovaries. Excess amniotic fluid. Thin lower uterine segment. Very little scar tissue present in patient's abdomen. Complications: none Surgical staff Toni Ghosh [facility] NURSE Operation Date: 04/10/25 17:15 <No data on this case meets the specified criteria> Diagnosis Discharge Diagnosis (1) Large for gestational age fetus affecting management of mother, antepartum: Status: Acute (2) Polyhydramnios affecting : Status: Acute (3) Gestational diabetes mellitus (GDM): Status: Acute (4) Previous section complicating : Status: Acute Problem List Completed Was Problem List Reviewed/Reconciled?: Yes (1) Large for gestational age fetus affecting management of mother, antepartum Qualifiers: Fetus number: single or unspecified fetus Qualified Code(s): O36.60X0 - Maternal care for excessive growth, unspecified trimester, not applicable or unspecified (3) Gestational diabetes mellitus (GDM) Qualifiers: Gestational diabetes mellitus control: oral hypoglycemic-controlled Trimester: third trimester Qualified Code(s): O24.415 - Gestational diabetes mellitus in , controlled by oral hypoglycemic drugs
[2025-04-10] MEDS: LABETALOL INJ 5 MG/ML VIAL 20 ML 20 MG IVP (19:24)
--- NOTE | 2025-04-10 19:28 | PD.LDDELS ---
Data ([facility]) Data Hx Section: Yes (1) Maternal Blood Type: A Pos Rubella Titre: Positive RPR: Non-reactive Labs: Negative: RPR, Hepatitis B, HIV, Chlamydia and Gonorrhea and Unknown: Herpes Type 1, Herpes Type 2 and Group Beta Strep : 6 Term: 2 : 1 Livin Abortions: Spontaneous & Theraputic: 2 Delivery Data ([facility]) Labor Data Induction/Augmentation Agent: None ROM date: 04/10/25 ROM time: 17:54 Amniotic membrane rupture type: Artificial Amniotic fluid description: Clear Delivery Data EDC: 04/20/25 Date of arrival to unit: 04/03/25 Onset of labor date: 04/10/25 Onset of labor time: 17:54 Complete dilation date: 04/10/25 Complete dilation time: 17:54 [place] delivery date: 04/10/25 [place] delivery time: 17:54 Gestational age (weeks): 38 Gestational age (days): 4 Placenta delivery date: 04/10/25 Placenta delivery time: 17:54 Stage 1 total time: Labor - Stage 1 Duration 0 minutes Delivered by: [facility] ([facility]) Delivery nurse: Stefany To, RN [place] nurse: Angeline Furnace Operator And Tender at delivery: No Support person(s) at delivery: FOB Other staff at delivery: MUMTAZ Clark, Denise. Bray Student Delivery Method Delivery method: Low Transverse Presentation: Vertex position: OA Anesthesia Type Anesthesia Type: Spinal Anesthesia type: Spinal Delivery Room Medications Delivery room medications: Methergine 0.2 mg IM, Pitocin 20 u IV and Cytotec 800 UT Placenta Placenta delivery description: Manual Removal Cord blood sent to lab: Yes cord blood collection: Cord Blood Type, Arterial Cord Blood Gas and Venous Cord Blood Gas Episiotomy Episiotomy description: None EBL Estimated blood loss (ml): 600 Umbilical Cord cord description: 3 Vessels Additional Procedures See op report for further details Complications Complications: None Data ([facility]) Bast[place] Data Bastrop's name: Portia order: 1 's gender: Female weight (gms): 4610 g 1 minute: 7 5 minutes: 8
[2025-04-10] MEDS: LABETALOL INJ 5 MG/ML VIAL 20 ML 40 MG IVP (19:45)
[2025-04-10] MEDS: OXYTOCIN in NS 20 units 20 UNIT/1,000 ML BAG 125 UNIT IV (19:50)
[2025-04-10] MEDS: LABETALOL INJ 5 MG/ML VIAL 20 ML 80 MG IVP (20:16)
[2025-04-10] MEDS: hydrALAZINE INJ 20 MG/ML VIAL 5 MG IVP (20:48)
[2025-04-10] MEDS: PROMETHAZINE INJ 25 MG/ML VIAL 12.5 MG IM (20:53)
[2025-04-10 22:59] LABS: Amphetamine/Metham Scrn,Ur OB Negative (Negative); Benzoylecgonine Screen, Ur OB Negative (Negative); Opiate Screen,Urine OB Negative (Negative); THC Screen,Urine OB Negative (Negative)
[2025-04-11] MEDS: RINGERS LACTATED 1000 ML 1,000 ML 100 ML IV (04:15)
[2025-04-11 04:33] VITALS: BP 126/77; PULSE 76; RESP 16; TEMP 37.1; O2SAT 99
[2025-04-11 05:44] LABS: Basophils # (Auto) 0.0 Thou/mm3 (0.0-0.2); Basophils % (Auto) 0 % (0-2.5); Eosinophils # (Auto) 0.0 Thou/mm3 (0.0-0.5); Eosinophils % (Auto) 0 % (0-10); Hematocrit 30.5 % (36.0-46.0); Hemoglobin 10.4 g/dL (12.0-16.0); Immature Granulocytes Auto 0.03 Thou/mm3 (0.00-0.00); Lymphocytes # (Auto) 2.1 Thou/mm3 (1.0-4.8); Lymphocytes % (Auto) 22 % (10-50); Mean Corpuscular HGB Conc 34.1 g/dl (31.0-37.0); Mean Corpuscular Hemoglobin 27.2 pg (25.0-35.0); Mean Corpuscular Volume 80 fL (80-100); Monocytes # (Auto) 0.5 Thou/mm3 (0.0-0.8); Monocytes % (Auto) 6 % (0-12); Neutrophils # (Auto) 6.6 Thou/mm3 (1.8-7.7); Neutrophils % (Auto) 71 % (37-80); Nucleated Red Blood Cell # 0.00 Thou/mm3 (0.00-0.00); Nucleated Red Blood Cell % 0 /100 WBC (0); Platelet Count 168 Thou/mm3 (140-440); RDW Standard Deviation 39.7 fL (36.4-46.3); Red Blood Count 3.82 Miln/mm3 (4.00-5.20); White Blood Count 9.2 Thou/mm3 (3.6-11.0)
--- NOTE | 2025-04-11 07:09 | ESPR_ITS ---
RE: SRI BENJAMIN : 1995 DATE OF SERVICE: 04/11/2025 SUBJECTIVE: Postop day #1, patient denies any problem or complaint. Her urine output is adequate. Her bedside glucose this morning is 82. She is tolerating diabetic diet. She denies any excessive vaginal bleeding. She denies any dizziness or lightheadedness. She denies any chest pain, palpitations, shortness of breath or lower extremity pain. OBJECTIVE: Vital Signs: Blood pressure 126/77, heart rate 76, respirations 16, temperature is 98.8, and pulse oximetry is 99% on room air. Lungs: Clear to auscultation bilaterally. Abdomen: Nondistended. Dressing dry and intact. Fundus is firm. Extremities: Nontender. LABORATORY DATA: Hemoglobin predelivery is 11.6, postdelivery is 10.4. ASSESSMENT: Postoperative day #1, status post delivery, Class B DM. PLAN: Remove dressing. Discontinue IV. Discontinue Mccabe catheter. Monitor for spontaneous voiding. Encourage ambulation. support. care. Continue Metformin 500mg po BID and sliding scale. DT: 06:44:08 TT: 07:07:00 Ref: [id number] - TID: [id number] MTDD
[2025-04-11] MEDS: HYDROcodone/APAP 5/325 TABLET 1 TAB PO ×2 (07:22→14:04)
[2025-04-11 07:59] VITALS: BP 123/78; PULSE 81; RESP 18; TEMP 36.7; O2SAT 97
--- NOTE | 2025-04-11 09:42 | PC.CC ---
Patient is a 29 year-old female who presents to the hospital to deliver her new born baby girl. Mirtha STEVENS received a referral from bedside KRISTAN Johnston for the patient regarding concerns of history of bipolar and spotty care. Mirtha HEATH, made [id number] contact to complete an assessment due to history of bipolar and ?spotty? care. ASW introduced herself, role in the agency, reason for visit, and discussed limits of confidentiality. Patient appeared alert and oriented to self, time, place, and situation. Patient made good eye contact. Patient was cooperative. Patient?s behavior appeared ordinary. No signs of delusions or hallucinations. Patient confirmed information on demographics and reports she lives with her significant other/father of baby Vidal Landrum . Patient reports she was diagnosed with Bipolar Disorder approximately 10 years ago but is not on medication and is not connected to outpatient mental health services. METAL SPRAYING MACHINE OPERATOR discussed with patient regarding her last appointment being 4 months ago to which she denied and reported her last appointment was 3 weeks ago at the [facility] with ?Dr. Mendez.? Patient reports she received consistent care at [facility] in [place]. Patient reports this is her 4th child. She has Carlos Enrique Urive age 10 and Geoff Urive age 9 whom she shares custody with the father. Patient reports she has had CWS involvement and her last child a female age 2 was adopted. Patient denied history of DV. METAL SPRAYING MACHINE OPERATOR informed mother that a report had to be made due to hisotyr of CWS involvement with her last child. Patient reports she plans on her . She reports she is receiving WIC, SNAP, and CashAid. Patient reports she has all supplies she needs for her except for a car seat that she is attempting to obtain. METAL SPRAYING MACHINE OPERATOR provided psychoeducation regarding baby blues and Post- Depression, as well as counseling groups at the [facility] and [facility]. SW provided community resources: Warm Line and Crisis Line. HILDA, filed a CWS SCAR Report as hospital policy warrants report due to history of CWS involvement. HILDA filed report with Joss Reddy Fountain Supervisor III and faxed report to . HILDA provided update to bedside KRISTAN Johnston.
--- NOTE | 2025-04-11 10:51 | PC.CC ---
Addendum entered by Mirtha Madison 04/11/25 12:19: CWS Hand Weaver Val Ham or responded to the hospital. She will provide an update once she is done with the referral. Original Note: RETAIL ASSISTANT STORE MANAGER SW, Val Ham made telephone contact with STAVE HEWER and reports that she will be responding to the hospital. STAVE HEWER provided update to bedside KRISTAN Johnston.
--- NOTE | 2025-04-11 11:00 | PC.NURSE ---
recreation worker Dulce filed CPS report, CPS stated they were responding before 1pm. At 1158 CPS was on floor interviewing patient.
[2025-04-11] MEDS: INSULIN LISPRO (AdmeLOG) 1 UNIT/0.01 ML UNIT SC (11:10)
[2025-04-11 11:25] VITALS: BP 127/81; PULSE 84; RESP 18; TEMP 36.8; O2SAT 99
--- NOTE | 2025-04-11 17:00 | PC.SS ---
TITLE CURATOR informed by bedside nurse that patient will require car seat upon discharge. TITLE CURATOR contacted Officer Brenton to assist with providing car seat. Officer Brenton oversees car seat program. No response. TITLE CURATOR left voicemail requesting return call. Voicemail requested that officejeff Farris contact oncology social work department. Bedside nurse updated.
[2025-04-11] MEDS: IBUPROFEN TAB 400 MG TABLET 800 MG PO (17:40)
[2025-04-11 20:00] VITALS: BP 130/64; PULSE 69; RESP 16; TEMP 36.9; O2SAT 98
[2025-04-11] MEDS: Milk Of Magnesia Susp 30 ML UDC PO (20:59)
[2025-04-11] MEDS: SIMETHICONE 80 MG CHEW PO (21:00)
[2025-04-11 23:45] VITALS: BP 135/75; PULSE 70; RESP 18; TEMP 36.9; O2SAT 98
[2025-04-12 03:50] VITALS: BP 133/80; PULSE 74; RESP 16; TEMP 36.8; O2SAT 97
[2025-04-12 07:12] LABS: Basophils # (Auto) 0.0 Thou/mm3 (0.0-0.2); Basophils % (Auto) 0 % (0-2.5); Eosinophils # (Auto) 0.0 Thou/mm3 (0.0-0.5); Eosinophils % (Auto) 1 % (0-10); Hematocrit 26.5 % (36.0-46.0); Hemoglobin 8.9 g/dL (12.0-16.0); Immature Granulocytes Auto 0.02 Thou/mm3 (0.00-0.00); Lymphocytes # (Auto) 1.5 Thou/mm3 (1.0-4.8); Lymphocytes % (Auto) 24 % (10-50); Mean Corpuscular HGB Conc 33.6 g/dl (31.0-37.0); Mean Corpuscular Hemoglobin 27.0 pg (25.0-35.0); Mean Corpuscular Volume 80 fL (80-100); Monocytes # (Auto) 0.4 Thou/mm3 (0.0-0.8); Monocytes % (Auto) 7 % (0-12); Neutrophils # (Auto) 4.3 Thou/mm3 (1.8-7.7); Neutrophils % (Auto) 68 % (37-80); Nucleated Red Blood Cell # 0.00 Thou/mm3 (0.00-0.00); Nucleated Red Blood Cell % 0 /100 WBC (0); Platelet Count 186 Thou/mm3 (140-440); RDW Standard Deviation 41.3 fL (36.4-46.3); Red Blood Count 3.30 Miln/mm3 (4.00-5.20); White Blood Count 6.3 Thou/mm3 (3.6-11.0)
[2025-04-12 07:40] VITALS: BP 144/89; PULSE 63; RESP 18; TEMP 36.7; O2SAT 97
--- NOTE | 2025-04-12 10:11 | PC.SS ---
Addendum entered by Taylor Hubbard 04/12/25 10:24: 1020-ASW contacted Lead Refrigerator Cabinetmaker Lory Sow [phone] as ASW was not able to reach assgined SSW Val Ham, to inform CWS that the mother will be d/c today and the pt is still considered as admitted and is not ready for d/c. Lead SSW Lory informed ASW that the other SSW Lead Marga Bradford [phone] is in route to [facility] to see the mother and pt. When SSW Marga arrives, she will speak to the assigned RN and the medical provider. Original Note: 1011-ASW attempted to contacted assigned CWS assigned social service manager Val Ham [phone] to inform her that per assigned RN Angelica, the mother will be discharged today, but the will remain admitted; however, Val did not answer her phone. ASW left a voice message on Val's work desk line requesting a clear detailed plan for the . As of this writing, the CWS worker has not returned the call. ASW obtained the Lead Social Service workers information if needed; Lead Lory Sow [phone] and Marga Bradford [phone], her chemical processing supervisor Frederick Barnard is on vacation.
--- NOTE | 2025-04-12 10:30 | PC.NURSE ---
Miguel Tellez and Marga Bradford, [facility], social workers here to see patient and infant
[2025-04-12] MEDS: INSULIN LISPRO (AdmeLOG) 1 UNIT/0.01 ML UNIT SC ×2 (11:50→17:05)
[2025-04-12 16:00] VITALS: BP 134/84; PULSE 79; RESP 17; TEMP 37.1; O2SAT 98
--- NOTE | 2025-04-12 17:04 | PD.LDPPPRG ---
Subjective Subjective Interval history: The patient is a 29-year-old G6 now P3124 postoperative day #2 status post repeat 04/10/2025. Patient is doing well today. She is ambulating, passing flatus, voiding, tolerating a general diet. She denies heavy bleeding fevers chills. She is bottlefeeding. Her pain is well-controlled with oral pain medications. She would like to be discharged later if baby can be discharged. Exam Vital Signs Temp Pulse Resp BP Pulse Ox O2 Del Method 98.8 F 79 17 134/84 H 98 Room Air 04/12/25 16:00 04/12/25 16:00 04/12/25 16:00 04/12/25 16:00 04/12/25 16:00 04/12/25 16:00 Narrative Exam Fundus is firm nontender at umbilicus. Incision is clean dry and intact. Extremities show 1+ pitting edema of ankles. Objective Labs 04/12/25 06:30 04/10/25 11:00 Labs: Laboratory Results - last 24 hr 04/12/25 06:30 WBC 6.3 RBC 3.30 L Hgb 8.9 L Hct 26.5 L MCV 80 MCH 27.0 MCHC 33.6 RDW Std Deviation 41.3 Plt Count 186 Neut % (Auto) 68 Lymph % (Auto) 24 Foard % (Auto) 7 Eos % (Auto) 1 Baso % (Auto) 0 Neut # (Auto) 4.3 Lymph # (Auto) 1.5 Foard # (Auto) 0.4 Eos # (Auto) 0.0 Baso # (Auto) 0.0 Immature Gran # (Auto) 0.02 H Absolute Nucleated RBC 0.00 Immature Gran % 0 Nucleated RBC % 0 Assessment & Plan Problem List (1) Gestational diabetes mellitus (GDM): Problem details: Patient's hemoglobin A1c on admission was 7.6. Home on metformin. Follow-up with Dr. Spencer for diabetic management. Status: Acute (2) Previous section complicating : Status: Acute (3) care following delivery: Problem details: Patient is postoperative day #2 in stable condition. Discharge instructions given. Will discharged home postoperative day #2 in stable condition. Status: Acute Time Spent With Patient Time: Total time spent is greater than 50% in coordination of care (as documented) at patient's floor/unit and/or counseling patient: Time with patient: less than 15 minutes
--- NOTE | 2025-04-12 17:07 | ESDS_ITS ---
DS: Providers Provider Date of admission: 04/10/25 12:07 Primary care physician: Physician No Primary/Family Admitting Provider: Justina [facility] ([facility]) Attending Provider on Admission: Vidal Hedrick MD Consults: 04/10/25 19:02 Referral Routine Comment: Attending Provider on DC: Justina Pozo MD ([facility]) Discharging Provider: Justina Pozo MD ([facility]) Anticipated date of discharge: 04/12/25 DS: Diagnosis Discharge Diagnosis (1) care following delivery: Status: Acute (2) Gestational diabetes mellitus (GDM): Status: Acute (3) Previous section complicating : Status: Acute Problem List Completed Was Problem List Reviewed/Reconciled?: Yes Summary/Hosp Course Brief History: Patient is a 29-year-old at 38-4/7 weeks estimated gestational age with various body care. Dr. Spencer had not seen her in the office in approximately 4 months for visits. She presented today to the office and I sent her over for an ultrasound and lab work. An ultrasound revealed a baby that was over 9 pounds at 4200 g and an DANNY of 26. Patient had a history of a x 1 in the past. Patient was pam on the monitor. As she had a large for gestational age infant, polyhydramnios, limited care, a prior and regular contractions she was consented for a repeat low-transverse section. See history and physical for further details. Hospital course: Patient was admitted 04/10/2025 and underwent an uncomplicated repeat low transverse section. Please see op report for further details. Her postoperative course was uncomplicated. By postoperative day #2, patient was ambulating, voiding, passing flatus, tolerating a general diet. She was bottlefeeding. She reported light bleeding. Her pain was controlled with oral pain medications. Her predelivery hemoglobin was 11.6 postdelivery hemoglobin 8.9. Vital signs remained stable. She was discharged home postoperative day #2 in stable condition. She will follow-up with Dr. Spencer for her postoperative care and management of her gestational diabetes. She is going to be discharged home on metformin. Peripartum Data Delivery Method: Low Transverse Episiotomy Description: None Procedures: Procedures Operation Date: 04/10/25 17:15 Actual Procedure Side Surgeon p in OB Not Applicable Justina P[facility] ([facility]), complications: none Status at Discharge Cognitive/behavioral status at discharge: Patient is alert and oriented x 3 in no apparent distress Functional status at discharge: independent ambulation Overall status at discharge: patient is progressing back to baseline Time Spent with Patient Time attestation: Total time spent providing and/or coordinating discharge services: Time spent: Less than 30 minutes Specific discharge activities: Pelvic rest x 6 weeks. No heavy lifting, intercourse, tampons, douching x 6 weeks no exercise x 6 weeks follow-up with Dr. Spencer in 1 week Exam Vital Signs Temp Pulse Resp BP Pulse Ox O2 Del Method 98.8 F 79 17 134/84 H 98 Room Air 04/12/25 16:00 04/12/25 16:00 04/12/25 16:00 04/12/25 16:00 04/12/25 16:00 04/12/25 16:00 Narrative Exam Fundus firm, nontender. Incision clean dry and intact. Discharge Plan Plan Patient Disposition: HOME (Self Care) Disposition Comment: Stable Patient condition on transfer: Stable Prescriptions/Referrals Prescriptions/Med Rec: New metformin 500 mg Tablet 500 mg PO BIDAC Qty: 60 0RF hydrocodone-acetaminophen 5-325 mg Tablet 2 tab PO Q6HR MDD 8 PRN (Reason: Patient rated pain 9 to 10) Qty: 40 0RF ibuprofen 400 mg Tablet 800 mg PO Q8HR PRN (Reason: Pain Scale 4-6 (Moderate) Qty: 60 0RF No Action metformin 500 mg tablet 500 mg PO BID Vitamin 27 mg iron- 800 mcg tablet 1 tab PO QDAY Referrals: No Primary/Family,Physician [Primary Care Provider] - Patient/Caregiver Discharge Instructions Discharge Activity: activity as tolerated Other Discharge Activity Instructions:: Schedule an appointment with the information technology project manager in 1-2 days Education Materials: C Section Dc Print Language: Belarusian Activity Restrictions/Additional Instructions: No heavy lifting exercise tampon use for 6 weeks. Pelvic rest x [address] Spencer for follow-up in 1 week. Monitor blood sugars. Wound instructions given. Stand Alone Forms: Emilia Award Info., Patient Portal Info Letter Discharge Order Discharge Orders: Discharge (Routine); Ordered 04/12/25 Ordered By: Justina P[facility] ([facility]) Planned Discharge Date 04/12/25 (2) Gestational diabetes mellitus (GDM) Qualifiers: Gestational diabetes mellitus control: oral hypoglycemic-controlled Trimester: third trimester Qualified Code(s): O24.415 - Gestational diabetes mellitus in , controlled by oral hypoglycemic drugs
== END 2025-04-12 17:59 | disposition home or self-care (01) | DRG 540 ==
LOC: S4SX 15:14 → S4NX 17:25
PROVIDERS: Admitting Provider Obstetrics & Gynecology; Visit Provider Specialist
PROC: 10D00Z1 Extraction of Products of Conception, Low, Open Approach (ICD-10-PCS; CPT 59514; principal; 2025-04-10 17:00)
DX: O34.211 Maternal care for low transverse scar from previous cesarean delivery (principal); O24.425 Gestational diabetes mellitus in childbirth, controlled by oral hypoglycemic drugs; O36.63X0 Maternal care for excessive fetal growth, third trimester, not applicable or unspecified; O40.3XX0 Polyhydramnios, third trimester, not applicable or unspecified; O34.83 Maternal care for other abnormalities of pelvic organs, third trimester; N80.00 Endometriosis of the uterus, unspecified; Z37.0 Single live birth; Z3A.38 38 weeks gestation of pregnancy
CPT/HCPCS: 36415; 59025; 59409; 76805; 80053; 80307; 81001; 82570; 83036; 83615; 84156; 84550; 85025; 85384; 85610; 85730; 86780; 86850; 86900; 86901; 86923; 87086; 94762; A4314; A4649; J0360; J0689; J1815; J2210; J2274; J2371; J2405; J2550; J2590; J2765; J3010; J3490; J7120; S0191; A9270; J1920; J2270